=== PATIENT | female | born 1985 | race Caucasian/White ===

== ENCOUNTER 2018-06-21 21:24 | Emergency (ER) | payer SELFPAY ==
[2018-06-21] MEDS ORDERED: ACETAMINOPHEN 325 MG TABLET PO ONE (22:22)
[2018-06-21] MEDS ORDERED: ACETAMINOPHEN 325 MG TABLET ONE (22:23)
--- NOTE | 2018-06-21 23:11 | RADIOLOGY REPORT (SQ) ---
EXAM DESCRIPTION: XR HAND 3 OR MORE VIEWS COMPLETED DATE/TME: 06/21/2018 00:00 CLINICAL HISTORY: 32 years, Female, punched a wall COMPARISON: None. FINDINGS: 3 views of the right hand. No acute fracture or dislocation. Normal osseous mineralization. IMPRESSION: No acute fracture or dislocation. 2011 [facility] [employer]- All Rights Reserved
[2018-06-21] MEDS ORDERED: HYDROCODONE/ACETAMINOPHEN 5-325 MG (6 TAB/ER DISP) PO PRN (23:54)
[2018-06-21] MEDS ORDERED: OXYCODONE-ACETAMINOPHEN 5-325 MG TABLET PO ONE (23:54)
--- NOTE | 2018-06-21 23:56 | ER Document Report ---
HPI - HPI Pain Level: 4 Notes: Patient presents with complaint of right hand pain after punching a wall last night. Patient reports that she was drinking alcohol, got angry and decided to punch a wall. Patient has no other complaints at this time. - REPRODUCTIVE Reproductive: DENIES: : - MUSCULOSKELETAL Musculoskeletal: REPORTS: Extremity pain - R hand through wrist Past Medical History - General Information source: Patient - Social History Smoking Status: Current Every Day Smoker Frequency of alcohol use: Social Drug Abuse: None Family History: Reviewed & Not Pertinent Patient has suicidal ideation: No Patient has homicidal ideation: No Renal/ Medical History: Denies: Hx Peritoneal Dialysis Psychiatric Medical History: Reports: Hx Anxiety, Hx Attention Deficit Hyperactivity Disorder Past Surgical History: Reports: Hx Section - x 2, Hx Orthopedic Surgery - Left knee Vertical Provider Document - CONSTITUTIONAL Notes: PHYSICAL EXAMINATION: GENERAL: Well-appearing, well-nourished and in no acute distress. HEAD: Atraumatic, normocephalic. EYES: Pupils equal round extraocular movements intact, conjunctiva are normal. ENT: Nares patent NECK: Normal range of motion LUNGS: No respiratory distress Musculoskeletal: Normal range of motion, mild swelling noted to patient's right hand, no ecchymosis. Capillary refill less than 3 seconds and normal motor/ sensation distal to injury. NEUROLOGICAL: Normal speech, normal gait. PSYCH: Normal mood, normal affect. SKIN: Warm, Dry, normal turgor, no rashes or lesions noted. - INFECTION CONTROL TRAVEL OUTSIDE OF THE [place] IN LAST 30 DAYS: No Course - Re-evaluation Re-evalutation: X-ray was negative for any acute findings. Patient placed in Holden wrap and sling for comfort. - Vital Signs Vital signs: Temp Pulse Resp BP Pulse Ox 97.8 F 59 L 137/75 H 100 06/21/18 22:12 06/21/18 22:12 06/21/18 22:12 06/21/18 22:12 Procedures - Immobilization Right hand Pre-Proc Neuro Vasc Exam: Normal Immobilizer type: Holden wrap, Sling Performed by: PCT Post-Proc Neuro Vasc Exam: Normal Alignment checked and good: Yes Discharge - Discharge Clinical Impression: Hand contusion Qualifiers: Encounter type: initial encounter Laterality: right Qualified Code(s): S60.221A - Contusion of right hand, initial encounter Condition: Stable Disposition: HOME, SELF-CARE Additional Instructions: Contusion Your injury has resulted in a contusion -- a crushing of the deep tissues. No injury to important structures was detected during the physician's exam. Contusions vary in the amount of pain they cause, and in the length of time required for healing. Typically, the area will become bruised, and will remain painful to touch for two or three weeks. However, most patients are back to working and playing within a few days. After the initial period of rest and cold-packs, your symptoms (together with the doctor's recommendations) will determine how rapidly you can get back to full activity. Usually this means "do what feels okay, but don't do things that hurt." If re-examination was recommended, it's important to follow up as instructed. Call the doctor or return any time if pain increases, if swelling becomes severe, if you develop numbness or weakness in an injured extremity, or if any other alarming symptoms occur. Your x-ray was negative for any acute fracture or dislocation today. Please take ibuprofen 600 mg every 6 hours for pain and inflammation. Use the hydrocodone as needed for severe pain. You may take 1 tablet every 4-6 hours. Ice and elevate the extremity, use the Holden wrap for comfort and compression. Follow-up with orthopedics if not improving over the next week. Referrals: MAGALY COTO, DO [ACTIVE STAFF] - Follow up as needed
[2018-06-22 00:54] VITALS: BP 120/80
== END 2018-06-22 00:55 | disposition home or self-care (01) ==
LOC: ER 21:24
DX: S60.221A Contusion of right hand, initial encounter (principal); X58.XXXA Exposure to other specified factors, initial encounter; Y93.9 Activity, unspecified; Y92.9 Unspecified place or not applicable
CPT/HCPCS: 99283